=== PATIENT | male | born 1960 | race Caucasian/White ===

== ENCOUNTER 2020-10-08 21:21 | Emergency (ER) | payer MEDICARE, BC ==
[~2020-10-08] VITALS: Ht 177.8 cm; Wt 93.6 kg
[~2020-10-08 21:21] MED LIST: ADVAIR DISKUS1 DS2 IH; ALAVERT10 M1 PO; ATARAX50 MG PO; AXIRON30 MG/1.5 TP; CELEXA20 MG PO; CITALOPRAM HBR10 MG PO; DILTIAZEM HYDR180 M2 PO; DILTIAZEM240 M1 PO; FLOMAX0.4 MG PO; FLONASE NASAL S16 GM NS; HCTZ PO; LEVOTHYROXIN0.025 MG PO; MEPERITAB50 MG PO; METOPROLOL SUCC50 M1 PO; PROBIOTIC FORMU1 CAP PO; PROSCAR PO; REGLAN 5MG T5 MG/TAB PO; SINGULAIR10 MG PO; TOPAMAX25 MG PO; VENTOLIN0.09 MG IH; XANAX 1MG1 MG PO; XANAX1 MG PO; ZANTAC 150150 MG PO; ZANTAC300 MG PO; [UNRECOGNIZED DRUG - OTHER] PO
[2020-10-08] MEDS ORDERED: ZALEPLON10 MG PO (22:08)
[2020-10-08] MEDS ORDERED: ROBAXIN-750750 MG PO (22:10)
[2020-10-08] MEDS ORDERED: BENICAR20 MG PO (22:10)
[2020-10-08] MEDS ORDERED: LEVOTHYROXINE125 MCG PO (22:11)
[2020-10-08] MEDS ORDERED: CYMBALTA60 M1 PO (22:12)
[2020-10-08] MEDS ORDERED: PEPCID 20MG TAB20 MG PO (22:20)
[2020-10-08 22:21] LABS: EOS % 0.5 % (0.0-4.0); HEMOGLOBIN 15.6 g/dL (13.5-18.0); LYMPH# 1.3 (1.50-4.00); MEAN CELL VOLUME 94 fl (78-100); MEAN CORPUSCULAR HEMOGLOBIN 32 pg (27-31); MEAN CORPUSCULAR HGB CONC 34 g/dL (33-37); MEAN PLATELET VOLUME 11.1 fl (7.4-10.4); MONO # 0.9 (0.20-0.80); NEU # 6.1 (1.40-6.50); PLATELET COUNT 240 K/mm3 (130-400); RED CELL DISTRIBUTION WIDTH 12.8 % (11.5-14.5); WHITE BLOOD COUNT 8.4 K/mm3 (4.8-10.8)
[2020-10-08] MEDS ORDERED: CYCLOBENZAPRINE10 M1 PO (22:25)
[2020-10-08] MEDS ORDERED: ZOFRAN4 M2 PO (22:26)
[2020-10-08 22:31] LABS: ALBUMIN 4.1 g/dL (3.5-5.0); POTASSIUM 3.9 mmol/L (3.5-5.1); SODIUM 141 mmol/L (136-145)
[2020-10-08 22:34] LABS: GLUCOSE 100 mg/dL (75-110); TOTAL PROTEIN 7.2 g/dL (6.4-8.3)
[2020-10-08 22:35] LABS: CARBON DIOXIDE 25 mmol/L (22-29)
[2020-10-08 22:39] LABS: AST-SGOT 16 U/L (5-34)
[2020-10-08 22:40] LABS: ALT/SGPT 20 U/L (0-55)
[2020-10-08 22:41] LABS: PARTIAL THROMBOPLASTIN TIME 24.4 SECONDS (21.0-32.0); PROTHROMBIN TIME 10.4 SECONDS (9.0-12.0)
[2020-10-08 22:46] LABS: TROPONIN-I < 0.03 ng/mL (<0.030)
[2020-10-08 23:17] LABS: URINE APPEARANCE CLEAR; URINE BILIRUBIN NEGATIVE (NEGATIVE); URINE BLOOD NEGATIVE (NEGATIVE); URINE COLOR YELLOW; URINE GLUCOSE NEGATIVE (NEGATIVE); URINE KETONE NEGATIVE (NEGATIVE); URINE LEUKOCYTE ESTERASE NEGATIVE (NEGATIVE); URINE NITRATE NEGATIVE (NEGATIVE); URINE PROTEIN(semi-quant) TRACE mg/dL (NEGATIVE); URINE UROBILINOGEN NORMAL (NORMAL); URINE WBC 0-1 /hpf (0-3)
[2020-10-08 23:37] VITALS: BP 117/79
== END 2020-10-08 23:37 | disposition home or self-care (01) ==
LOC: ED 21:21
PROVIDERS: Nurse Practitioner
DX: R42 Dizziness and giddiness (principal); Z86.79 Personal history of other diseases of the circulatory system; Z88.6 Allergy status to analgesic agent; Z88.5 Allergy status to narcotic agent; Z88.8 Allergy status to other drugs, medicaments and biological substances
CPT/HCPCS: J1885; J7030

== ENCOUNTER 2020-11-05 18:50 | Emergency (ER) | payer MEDICARE, BC ==
[~2020-11-05] VITALS: Ht 177.8 cm; Wt 93.2 kg
[~2020-11-05 18:50] MED LIST changes: +BENICAR20 MG PO; +CYCLOBENZAPRINE10 M1 PO; +CYMBALTA60 M1 PO; +LEVOTHYROXINE125 MCG PO; +PEPCID 20MG TAB20 MG PO; +ROBAXIN-750750 MG PO; +ZALEPLON10 MG PO; +ZOFRAN4 M2 PO
[2020-11-05] MEDS ORDERED: TESTOSTERO200 MG/1 M IM (19:46)
[2020-11-05] MEDS ORDERED: [UNRECOGNIZED DRUG - OTHER] (19:48)
[2020-11-05 20:19] LABS: EOS # 0.1 (0.04-0.40); EOS % 1.5 % (0.0-4.0); HEMATOCRIT 47.6 % (42.0-52.0); HEMOGLOBIN 16.6 g/dL (13.5-18.0); LYMPH# 1.1 (1.50-4.00); MEAN CELL VOLUME 92 fl (78-100); MEAN CORPUSCULAR HEMOGLOBIN 32 pg (27-31); MEAN CORPUSCULAR HGB CONC 35 g/dL (33-37); MONO # 0.7 (0.20-0.80); NEU # 4.6 (1.40-6.50); PLATELET COUNT 238 K/mm3 (130-400); RED CELL DISTRIBUTION WIDTH 12.9 % (11.5-14.5); WHITE BLOOD COUNT 6.5 K/mm3 (4.8-10.8)
[2020-11-05 20:31] LABS: ALBUMIN 4.1 g/dL (3.5-5.0); POTASSIUM 4.5 mmol/L (3.5-5.1); SODIUM 140 mmol/L (136-145)
[2020-11-05 20:32] LABS: CALCIUM 9.8 mg/dL (8.3-10.5)
[2020-11-05 20:33] LABS: GLUCOSE 110 mg/dL (75-110); TOTAL PROTEIN 7.1 g/dL (6.4-8.3)
[2020-11-05 20:34] LABS: CARBON DIOXIDE 24 mmol/L (22-29)
[2020-11-05 20:35] LABS: TOTAL BILIRUBIN 0.8 mg/dL (0.2-1.2)
[2020-11-05 20:38] LABS: AST-SGOT 18 U/L (5-34)
[2020-11-05 20:40] LABS: ALT/SGPT 15 U/L (0-55)
[2020-11-05 20:48] LABS: TROPONIN-I < 0.03 ng/mL (<0.030)
[2020-11-05 20:52] LABS: URINE APPEARANCE CLEAR; URINE BILIRUBIN NEGATIVE (NEGATIVE); URINE BLOOD NEGATIVE (NEGATIVE); URINE COLOR YELLOW; URINE GLUCOSE NEGATIVE (NEGATIVE); URINE KETONE NEGATIVE (NEGATIVE); URINE LEUKOCYTE ESTERASE NEGATIVE (NEGATIVE); URINE NITRATE NEGATIVE (NEGATIVE); URINE PROTEIN(semi-quant) NEGATIVE (NEGATIVE); URINE UROBILINOGEN NORMAL (NORMAL); URINE WBC 0-1 /hpf (0-3)
[2020-11-05 22:23] VITALS: BP 158/89
== END 2020-11-05 22:25 | disposition home or self-care (01) ==
LOC: ED 18:50
PROVIDERS: Nurse Practitioner Family
DX: L29.9 Pruritus, unspecified (principal); Z63.79 Other stressful life events affecting family and household; Z11.59 Encounter for screening for other viral diseases; I10 Essential (primary) hypertension; Z88.6 Allergy status to analgesic agent; Z20.828 Contact with and (suspected) exposure to other viral communicable diseases
CPT/HCPCS: Q0177

== ENCOUNTER 2021-01-29 20:16 | Emergency (ER) | payer OTHER ==
[~2021-01-29 20:16] MED LIST changes: +TESTOSTERO200 MG/1 M IM; +[UNRECOGNIZED DRUG - OTHER]
[2021-01-29] MEDS ORDERED: LOPID600 M1 PO (21:17)
[2021-01-29] MEDS ORDERED: CYMBALTA30 M1 PO (21:21)
[2021-01-29 21:34] LABS: HEMATOCRIT 44.8 % (42.0-52.0); HEMOGLOBIN 15.6 g/dL (13.5-18.0); MEAN CELL VOLUME 92 fl (78-100); MEAN CORPUSCULAR HEMOGLOBIN 32 pg (27-31); MEAN CORPUSCULAR HGB CONC 35 g/dL (33-37); PLATELET COUNT 279 K/mm3 (130-400); RED BLOOD COUNT 4.85 M/mm3 (4.20-5.60); RED CELL DISTRIBUTION WIDTH 13.1 % (11.5-14.5); WHITE BLOOD COUNT 11.9 K/mm3 (4.8-10.8)
[2021-01-29 21:44] LABS: ALBUMIN 4.4 g/dL (3.5-5.0)
[2021-01-29 21:45] LABS: POTASSIUM 4.1 mmol/L (3.5-5.1); SODIUM 142 mmol/L (136-145)
[2021-01-29 21:46] LABS: CALCIUM 9.5 mg/dL (8.3-10.5)
[2021-01-29 21:47] LABS: GLUCOSE 103 mg/dL (75-110); LYMPHOCYTE 7 % (20-51); MONOCYTE 7 % (3-10); NEUTROPHILS 86 % (42-75); TOTAL PROTEIN 7.5 g/dL (6.4-8.3)
[2021-01-29 21:48] LABS: CARBON DIOXIDE 22 mmol/L (22-29); TEAR DROP CELLS 1+
[2021-01-29 21:49] LABS: TOTAL BILIRUBIN 0.7 mg/dL (0.2-1.2)
[2021-01-29 21:52] LABS: AST-SGOT 23 U/L (5-34)
[2021-01-29 21:54] LABS: ALT/SGPT 17 U/L (0-55)
[2021-01-29 22:01] LABS: TROPONIN-I < 0.03 ng/mL (<0.030)
[2021-01-29 22:06] LABS: PH-URINE 6.5 (5.0 - 8.0); URINE APPEARANCE CLEAR; URINE BILIRUBIN NEGATIVE (NEGATIVE); URINE BLOOD NEGATIVE (NEGATIVE); URINE COLOR YELLOW; URINE GLUCOSE NEGATIVE (NEGATIVE); URINE KETONE 1+ (NEGATIVE); URINE LEUKOCYTE ESTERASE NEGATIVE (NEGATIVE); URINE NITRATE NEGATIVE (NEGATIVE); URINE PROTEIN(semi-quant) TRACE mg/dL (NEGATIVE); URINE UROBILINOGEN NORMAL (NORMAL)
[2021-01-29 22:07] LABS: URINE MUCUS PRESENT (NOT PRESENT)
[2021-01-29 23:19] VITALS: BP 120/56
== END 2021-01-29 23:19 | disposition home or self-care (01) ==
LOC: ED 20:16
PROVIDERS: Family Medicine
DX: S30.0XXA Contusion of lower back and pelvis, initial encounter (principal); G89.29 Other chronic pain; M54.9 Dorsalgia, unspecified; F41.9 Anxiety disorder, unspecified; I10 Essential (primary) hypertension; E11.9 Type 2 diabetes mellitus without complications; J45.909 Unspecified asthma, uncomplicated; V89.2XXA Person injured in unspecified motor-vehicle accident, traffic, initial encounter
CPT/HCPCS: J1885

== ENCOUNTER 2021-02-03 08:33 | Emergency (ER) | payer OTHER ==
[~2021-02-03 08:33] MED LIST changes: +CYMBALTA30 M1 PO; +LOPID600 M1 PO
[2021-02-03 09:53] LABS: HEMATOCRIT 46.3 % (42.0-52.0); HEMOGLOBIN 15.9 g/dL (13.5-18.0); MEAN CELL VOLUME 94 fl (78-100); MEAN CORPUSCULAR HEMOGLOBIN 32 pg (27-31); MEAN CORPUSCULAR HGB CONC 34 g/dL (33-37); MEAN PLATELET VOLUME 11.8 fl (7.4-10.4); PLATELET COUNT 264 K/mm3 (130-400); RED BLOOD COUNT 4.95 M/mm3 (4.20-5.60); RED CELL DISTRIBUTION WIDTH 13.5 % (11.5-14.5)
[2021-02-03 09:54] LABS: ALBUMIN 4.2 g/dL (3.5-5.0); SODIUM 142 mmol/L (136-145)
[2021-02-03 09:55] LABS: CALCIUM 9.2 mg/dL (8.3-10.5)
[2021-02-03 09:56] LABS: GLUCOSE 113 mg/dL (75-110)
[2021-02-03 09:57] LABS: TOTAL PROTEIN 7.2 g/dL (6.4-8.3)
[2021-02-03 09:58] LABS: CARBON DIOXIDE 22 mmol/L (22-29); TOTAL BILIRUBIN 0.5 mg/dL (0.2-1.2)
[2021-02-03 10:02] LABS: AST-SGOT 20 U/L (5-34)
[2021-02-03 10:03] LABS: ALT/SGPT 18 U/L (0-55)
[2021-02-03 10:17] LABS: LYMPHOCYTE 37 % (20-51); MONOCYTE 6 % (3-10); NEUTROPHILS 56 % (42-75)
[2021-02-03 10:18] LABS: TROPONIN-I < 0.03 ng/mL (<0.030)
[2021-02-03 12:10] LABS: PH-URINE 5.5 (5.0 - 8.0); URINE APPEARANCE CLEAR; URINE COLOR YELLOW; URINE PROTEIN(semi-quant) NEGATIVE (NEGATIVE)
[2021-02-03 12:11] LABS: URINE BILIRUBIN NEGATIVE (NEGATIVE); URINE BLOOD NEGATIVE (NEGATIVE); URINE GLUCOSE NEGATIVE (NEGATIVE); URINE KETONE NEGATIVE (NEGATIVE); URINE LEUKOCYTE ESTERASE NEGATIVE (NEGATIVE); URINE MUCUS PRESENT (NOT PRESENT); URINE NITRATE NEGATIVE (NEGATIVE); URINE UROBILINOGEN NORMAL (NORMAL); URINE WBC 0-1 /hpf (0-3)
[2021-02-03] MEDS ORDERED: XANAX0.5 M1 PO (12:46)
[2021-02-03 13:24] VITALS: BP 111/94
== END 2021-02-03 13:24 | disposition home or self-care (01) ==
LOC: ED 08:33
PROVIDERS: Physician Assistant
DX: F41.9 Anxiety disorder, unspecified (principal); R51.9 Headache, unspecified; G89.29 Other chronic pain; M54.5 Low back pain; I10 Essential (primary) hypertension; J45.909 Unspecified asthma, uncomplicated; Z87.820 Personal history of traumatic brain injury; Z88.6 Allergy status to analgesic agent; Z88.8 Allergy status to other drugs, medicaments and biological substances
CPT/HCPCS: J1885; J2060; J7030

== ENCOUNTER → 2021-02-10 | Outpatient (CLI) | payer MEDICARE, BC ==
[~2021-02-10] MED LIST changes: +FIORICET 325 MG1 TAB; +KETOROLAC10 MG PO; +ONDANSETRON ODT8 MG PO; +SKELAXIN 800MG800 MG PO; +XANAX0.5 M1 PO
[2021-02-10 13:08] VITALS: BP 158/85
[2021-02-10 14:00] VITALS: BP 125/71
== END ==
LOC: AMSURD 12:29
DX: R53.81 Other malaise (principal)
CPT/HCPCS: J7030

== ENCOUNTER 2021-05-07 00:39 | Emergency (ER) | payer MEDICARE, BC ==
[~2021-05-07 00:39] MED LIST changes: -FIORICET 325 MG1 TAB; -KETOROLAC10 MG PO; -ONDANSETRON ODT8 MG PO; -SKELAXIN 800MG800 MG PO
[2021-05-07] MEDS ORDERED: XANAX 1MG1 MG PO (00:47)
[2021-05-07] MEDS ORDERED: SKELAXIN 800MG800 MG PO (00:48)
[2021-05-07] MEDS ORDERED: ROBAXIN-750750 MG PO (00:48)
[2021-05-07] MEDS ORDERED: FIORICET 325 MG1 TAB (00:49)
[2021-05-07 01:19] LABS: BASO # 0.03 (0.02-0.10); EOS # 0.13 (0.04-0.40); EOS % 1.9 % (0.0-4.0); HEMATOCRIT 46.9 % (42.0-52.0); HEMOGLOBIN 16.6 g/dL (13.5-18.0); LYMPH# 1.54 (1.50-4.00); MEAN CELL VOLUME 93 fl (78-100); MEAN CORPUSCULAR HEMOGLOBIN 33 pg (27-31); MEAN CORPUSCULAR HGB CONC 35 g/dL (33-37); MEAN PLATELET VOLUME 10.7 fl (7.4-10.4); MONO # 0.76 (0.20-0.80); PLATELET COUNT 251 K/mm3 (130-400); RED BLOOD COUNT 5.07 M/mm3 (4.20-5.60); RED CELL DISTRIBUTION WIDTH 12.3 % (11.5-14.5); WHITE BLOOD COUNT 6.8 K/mm3 (4.8-10.8)
[2021-05-07 01:29] LABS: ALBUMIN 3.9 g/dL (3.5-5.0); SODIUM 141 mmol/L (136-145)
[2021-05-07 01:31] LABS: GLUCOSE 125 mg/dL (75-110); TOTAL PROTEIN 7.1 g/dL (6.4-8.3)
[2021-05-07 01:34] LABS: CARBON DIOXIDE 21 mmol/L (22-29); TOTAL BILIRUBIN 0.5 mg/dL (0.2-1.2)
[2021-05-07 01:36] LABS: AST-SGOT 17 U/L (5-34)
[2021-05-07 01:45] LABS: ALT/SGPT 15 U/L (0-55); LIPASE 37 U/L (8-78); TROPONIN-I < 0.03 ng/mL (<0.030)
[2021-05-07 02:13] LABS: PH-URINE 5.5 (5.0 - 8.0); URINE APPEARANCE CLEAR; URINE BILIRUBIN NEGATIVE (NEGATIVE); URINE BLOOD NEGATIVE (NEGATIVE); URINE COLOR YELLOW; URINE GLUCOSE NEGATIVE (NEGATIVE); URINE KETONE NEGATIVE (NEGATIVE); URINE LEUKOCYTE ESTERASE NEGATIVE (NEGATIVE); URINE NITRATE NEGATIVE (NEGATIVE); URINE PROTEIN(semi-quant) NEGATIVE (NEGATIVE); URINE UROBILINOGEN NORMAL (NORMAL); URINE WBC 0-1 /hpf (0-3)
[2021-05-07] MEDS ORDERED: ONDANSETRON ODT8 MG PO (07:22)
[2021-05-07] MEDS ORDERED: KETOROLAC10 MG PO (07:22)
[2021-05-07 07:43] VITALS: BP 134/75
== END 2021-05-07 07:43 | disposition home or self-care (01) ==
LOC: ED 00:39
PROVIDERS: Nurse Practitioner Family
DX: K80.20 Calculus of gallbladder without cholecystitis without obstruction (principal); G89.29 Other chronic pain; M54.9 Dorsalgia, unspecified; R11.0 Nausea; I10 Essential (primary) hypertension; J45.909 Unspecified asthma, uncomplicated; G43.909 Migraine, unspecified, not intractable, without status migrainosus; Z87.19 Personal history of other diseases of the digestive system; Z87.81 Personal history of (healed) traumatic fracture; Z88.5 Allergy status to narcotic agent; Z88.6 Allergy status to analgesic agent; Z79.51 Long term (current) use of inhaled steroids; Z79.899 Other long term (current) drug therapy; Z79.891 Long term (current) use of opiate analgesic
CPT/HCPCS: J1885; J2405; J3490; J7030

== ENCOUNTER → 2021-05-07 | Outpatient (CLI) | payer MEDICARE, BC | LOC: VAS 07:57 | DX: K80.20 Calculus of gallbladder without cholecystitis without obstruction (principal) ==

== ENCOUNTER 2022-06-24 22:25 | Outpatient (RCR) | payer MEDICARE, BC ==
[2022-06-22 17:30] VITALS: BP 121/70
[2022-06-22 19:27] VITALS: BP 123/73
[2022-06-23 10:27] VITALS: BP 132/81
[2022-06-23 11:37] VITALS: BP 121/83
[2022-06-23 21:39] VITALS: BP 135/73
[2022-06-23 22:41] VITALS: BP 129/77
[~2022-06-24] VITALS: Ht 177.8 cm; Wt 95.3 kg
[2022-06-24 11:30] VITALS: BP 113/71
[2022-06-24 12:45] VITALS: BP 122/72
[~2022-06-24 22:25] MED LIST changes: +ACETAMINOPHEN-H1 TA1 PO; +FIORICET 325 MG1 TAB; +KETOROLAC10 MG PO; +ONDANSETRON ODT8 MG PO; +SKELAXIN 800MG800 MG PO; +SYNTHROID0.125 MG PO
[2022-06-24 22:30] VITALS: BP 129/73
[2022-06-24 23:32] VITALS: BP 124/65
== END 2022-07-13 | disposition home or self-care (01) ==
LOC: AMSURD
DX: G89.4 Chronic pain syndrome (principal)
CPT/HCPCS: J7030

== ENCOUNTER → 2022-07-30 | Outpatient (CLI) | payer MEDICARE, BC ==
[~2022-07-30] VITALS: Ht 177.8 cm; Wt 95.3 kg
[2022-07-30 14:10] VITALS: BP 124/83
== END ==
LOC: AMSURD 13:19
DX: Z51.81 Encounter for therapeutic drug level monitoring (principal)
CPT/HCPCS: J7030